=== PATIENT | female | born 1985 | race Caucasian/White ===

== ENCOUNTER 2023-06-28 09:19 | Outpatient (AMB) | payer MEDICARE, MEDICAID, SELFPAY ==
[2023-06-28 09:31] VITALS: BP 126/80; BMI 27.6
--- NOTE | 2023-06-28 09:31 | A.OFFVIS_ITS ---
Intake Vital Signs 06/28/23 09:31 Height 5 ft 7 in Weight 176 lb BMI 27.6 BP 126/80 Intake Visit Reasons: CARE AID annual exam Intake Note: Friend-Ольга The patient agreed to use of a durable medical equipment technician during this encounter. Scribed for RUDY Thomas by Yany Perkins, durable medical equipment technician, on 06/28/2023 at 9:52 am EST. Nuclear Spectroscopist: Nuclear Spectroscopist Present (Alicia) Accompanied by: Friend Allergies No Known Allergies Allergy (Verified 06/28/23 09:31) Is last menstrual period known: Yes Last menstrual period: 06/08/23 HPI HPI Comments History of Present Illness Details She is a premenopausal woman presenting for annual exam with software support representative from her program-Ольга. Doing well with no rn licensed practical concerns: painful menses. Currently never sexually active. Reports heavy and painful menses with cramps 2/5 days. States Tylenol has helped her in the past. She admits to eating healthy and tries to stay active with exercise. Denies vaginal itching and irritation. Denies family hx of colon and ovarian cancer. Last pap smear 06/25/20. [facility] Medical History (Updated 06/28/23 @ 10:07 by Yany Perkins) Dysmenorrhea Menorrhagia with regular cycle Learning disability Autism spectrum Surgical History History of fusion of spine for scoliosis (2013) Family History Father Alcoholic Mother Breast CA Paternal Uncle Lung cancer Social History (Updated 06/28/23 @ 09:54 by Carlee Travis CNM) Household Members Other:: lives w/mom, aunt and uncle Housing: House e-Cigarette/Vaping Use: Never Used service: No Current occupational status: employed Current occupation: [employer] Cognitive needs: No Hearing needs: No Vision needs: No Female Reproductive History Menstrual Duration of menses: 3-5 days Date of last menstrual period: 06/08/23 control method: none Total pregnancies: 0 Date of last pap smear: 06/25/20 (neg) Physical Exam Vital Signs: Last Vital Signs BP 126/80 06/28/23 09:31 BMI result Body Mass Index 27.6 Const General: cooperative, healthy appearing, no acute distress, well developed and alert Orientation/consciousness: patient oriented x3 HEENT Head: Yes normal to inspection Eyes General: appearance normal, both eyes and all related structures Neck Neck: Yes normal visual inspection Thyroid: Thyroid normal Chest Chest palpation & inspection: normal inspection of the chest Breast/axilla inspection: normal inspection of the breasts (no puckering, dimpling, peau de orange, retraction, discharge, masses) Breast/axilla palpation: normal palpation of the breasts Resp Effort & Inspection: normal respiratory effort GI Inspection: Yes normal to inspection Palpation (GI): Soft to palpation (to palpation) Rectal Exam - Female: deferred General: Yes bladder normal to inspection External Female Exam: normal external appearance and normal appearance of the urethra Speculum Exam - Vagina: normal appearance of the vagina, normal palpation and normal vaginal discharge Speculum Exam - Cervix: normal appearance of the cervix, normal palpation and Other cervical findings present (bled slightly with exam) Bimanual exam- vagina & uterus: normal palpation and normal palpation Bimanual Exam- Adnexa, other: normal adnexae and no masses Skin General skin exam: no rashes or lesions noted Neuro General: patient oriented x3 Cognition (Neuro): normal cognition Extrem General: Yes normal to inspection Psych Attitude: cooperative Thought process: Normal thought process present Assessment & Plan Assessment & Plan (1) Encounter for routine gynecological examination: Code(s): Z01.419 - Encounter for gynecological examination (general) (routine) without abnormal findings Plan: Discussed: Current recommendations for pap smears per ASCCP guidelines. Breast awareness and periodic self breast exams. Encouraged BRCA testing. Maintaining a healthy lifestyle including a well balanced diet and routine exercise. Encouraged to use condoms for STD and prevention if become sexual active. All of her questions and concerns were addressed to the best of my ability. RTO in one year for AG. (2) Dysmenorrhea: Code(s): N94.6 - Dysmenorrhea, unspecified Plan: Rx sent to pharmacy. Advised to use 3 Ibuprofen 200 mg (600 milligrams) with food for pain management. Give this a trial for 3 months and if Rx is not working contact office for BC consult. Medications: New ibuprofen take medication 1-3 days of your menses for cramping with food 600 mg PO Q6H PRN 60 tabs 0RF pain Coding Level of Care Code New Pt Prev Care 18-39yr([id number] Diagnoses Encounter for routine gynecological examination Z01.419 Dysmenorrhea N94.6
== END 2023-06-28 10:11 | disposition home or self-care (01) ==
PROVIDERS: Visit Provider Advanced Practice Midwife
DX: N94.6 Dysmenorrhea, unspecified (principal); Z01.419 Encounter for gynecological examination (general) (routine) without abnormal findings
CPT/HCPCS: 99213; G0101

== ENCOUNTER → 2023-06-28 09:19 | Outpatient (BNVA) | payer MEDICARE, MEDICAID, SELFPAY | PROVIDERS: Visit Provider Advanced Practice Midwife | DX: Z01.419 Encounter for gynecological examination (general) (routine) without abnormal findings (principal); N94.6 Dysmenorrhea, unspecified | CPT/HCPCS: 99212; G0101 ==

== ENCOUNTER 2023-11-29 10:57 | Outpatient (AMB) | payer MEDICARE, MEDICAID, SELFPAY ==
[2023-11-29 11:09] VITALS: BP 120/76; PULSE 87; O2SAT 99; BMI 28.0
--- NOTE | 2023-11-29 11:09 | A.OFFPC_ITS ---
Vital Signs 11/29/23 11:09 Height 5 ft 7 in Weight 178 lb 8 oz BMI 28.0 BP 120/76 Blood Pressure Location Rt brachial Position Sitting Pulse 87 Pulse Source Pulse Oximeter Pulse Oximetry (%) 99 Oxygen Delivery Method Room Air Intake Visit Reasons: Annual Physical Allergies No Known Allergies Allergy (Verified 11/29/23 11:09) Medication List - Last Reconciled 11/29/23 by Patricia Nielsen MD No Known Home Meds Tobacco use date assessed: 11/29/23 Dental Screening Dental Screen Date: 11/29/23 Did you have a dental visit in the last 12 months?: No Did you have a dental problem in the last 6 months where you did not have access to dental care?: No Was dental information given to patient?: Patient has dentist HPI Annual Physical HPI Details Patient is a 37-year-old female came in today for physical examination Patient says that her mother had breast cancer when she was 41 Breast exam was benign today I have placed order for mammogram Patient is on autism spectrum with learning disability She is on able to take public transportation due to that reason. she says that she takes that transportation to go to work at [employer] every day She does have assistance for social activities by Ольга Canas, who is here with the patient she also sometimes take her for appointments Patient had a speech therapy when she was young, her speech is clear today she is able to answer questions appropriately Memory intact She has difficulty reading and writing Patient is established with OBGYN She will have fasting labs today Physical exam 1 year [facility] Medical History Dysmenorrhea Menorrhagia with regular cycle Learning disability Autism spectrum Surgical History History of fusion of spine for scoliosis (2013) Family History Father Alcoholic Mother Breast CA Paternal Uncle Lung cancer Social History Household Members Other:: lives w/mom, aunt and uncle Housing: House Patient Tobacco Use Status: Never used Tobacco e-Cigarette/Vaping Use: Never Used service: No Current occupational status: employed Current occupation: [employer] Cognitive needs: No Hearing needs: No Vision needs: No Questionnaire PHQ-9 Over the last 2 weeks, how often have you been bothered by any of the following problems? 1. Little interest or pleasure in doing things: not at all 2. Feeling down, depressed, or hopeless: not at all 3. Trouble falling or staying asleep, or sleeping too much: not at all 4. Feeling tired or having little energy: not at all 5. Poor appetite or overeating: not at all 6. Feeling bad about yourself - or that you are a failure or have let yourself or your family down: not at all 7. Trouble concentrating on things, such as reading the newspaper or watching television: not at all 8. Moving or speaking so slowly that other people could have noticed. Or the opposite - being so fidgety or restless that you have been moving around a lot more than usual: not at all 9. Thoughts that you would be better off or of hurting yourself in some way: not at all Total score: 0 Depression Screening Interpretation: Negative Depression Screening Done: Yes [id number] - PHQ-9 Billing: Yes Source: Developed by Drs. Julius Loyola, Paula Reis, Danny Alvarez and colleagues, with an educational franck from [employer]. Thrive Questionnaire Date Thrive assessed: 11/29/23 I am a: Patient What is your living situation today?: I have a steady place to live Within the past 12 months, did the food you bought not last and you didn't have the money to get more?: Never true Within the past 12 months, did you worry whether your food would run out before you got money to buy more?: Never true Do you have trouble paying for medicines?: No Do you have trouble getting transportation to medical appointments?: No Do you have trouble paying your heating and electricity bill?: No Do you have trouble taking care of your child, family member or friend?: No Do you have trouble with day-to-day activities such as bathing, preparing meals, shopping, managing finances, etc.?: No Are you currently unemployed and looking for a job?: No Are you interested in more education?: No Please select the resources that you would like help with: None Currently or been in a relationship where the following occur: no concerns reported THRIVE Score: 0 AUDIT C Alcohol Use Questionnaire (AUDIT-C) 1. How often do you have a drink containing alcohol?: Never 3. How often do you have six or more drinks on one occasion?: Never Total Score: 0 Score Reviewed/Action Taken: Yes TI-7 AMB Questionnaire TI-7 Date TI - 7 assessed: 11/29/23 Feeling nervous, anxious, or on edge: 0 = Not at all Not being able to stop or control worryin = Not at all Worrying too much about different things: 0 = Not at all Trouble relaxin = Not at all Being so restless that it is hard to sit still: 0 = Not at all Becoming easily annoyed or irritable: 0 = Not at all Feeling afraid as if something awful might happen: 0 = Not at all Total TI-7 score (0-4 normal; 5-9 mild; 10-14 moderate; 15-21 severe): 0 Source: Developed by Drs. Julius Loyola, Paula Reis, Danny Alvarez and colleagues, with an educational franck from [employer]. TI-7 Assessment Billing TI-7 Assessment Tool: TI-7 Assessment 14855 Review of Systems Const Denies chills, Denies fever(s) and Denies headache(s) Eyes Denies blurry vision ENT Denies headache(s), Denies nasal discharge, Denies nasal obstruction, Denies odynophagia and Denies sinus pain Card Denies chest pain at rest and Denies chest pain with activity Resp Denies cough and Denies hemoptysis GI Denies diarrhea, Denies odynophagia, Denies vomiting and Denies hematemesis Reports as per HPI Musc Denies abnormal gait Skin/Breast Reports as per HPI Neuro Denies Neuro-related abnormal movements, Denies Abnormal speech present, Denies abnormal gait, Denies headache(s) and Denies Sensory deficit (Neuro) Psych Denies mood swings and Denies paranoia Endo Reports as per HPI Galdino/Lymph Reports as per HPI Aller/Immun Reports as per HPI Physical exam (Primary Care) Vital Signs: Last Vital Signs Pulse 87 11/29/23 11:09 BP 120/76 11/29/23 11:09 Pulse Ox 99 11/29/23 11:09 Oxygen Delivery Method Room Air 11/29/23 11:09 BMI result Body Mass Index 28.0 Tobacco/Smoking Status: Tobacco use Status Tobacco use date assessed 11/29/23 11/29/23 11:10 Patient Tobacco Use Status Never used Tobacco 11/29/23 11:22 e-Cigarette/Vaping Use Never Used 11/29/23 11:10 PHQ-9: PHQ-9 Score PHQ-9: Total score 0 11/29/23 11:47 Depression Screening Interpretation: Negative Thrive Assessment: Date of Thrive Assessment Date Thrive assessed 11/29/23 11/29/23 11:24 Currently or been in a relationship where the following occur: no concerns reported Const General: cooperative, comfortable and no acute distress Orientation/consciousness: patient oriented x3 HENMT Head: Yes normocephalic and Yes atraumatic Eyes General: appearance normal, both eyes and all related structures Pupils: Equal, round and reactive pupils present EOM: EOMs intact bilaterally Neck Neck: Yes supple and No lymphadenopathy Thyroid: Thyroid normal Lymphatic: no lymphadenopathy noted Chest Breast/axilla palpation: normal palpation of the breasts Resp Effort & Inspection: normal respiratory effort and able to speak in complete sentences Auscultation: clear to auscultation bilaterally Cardio Heart sounds: S1 normal heart sound present and S2 normal heart sound present GI Palpation (GI): Soft to palpation and nontender Auscultation: normal bowel sounds General: Yes no CVA tenderness Back/Spine/Pelvis Back: no CVA tenderness Skin General skin exam: elasticity normal and turgor normal Neuro General: patient oriented x3 and gait normal Cranial nerves: Yes Equal, round and reactive pupils present Speech: No Abnormal speech present Sensory Exam: No Sensory deficit (Neuro) Coordination: Romberg test negative Extrem General: Yes normal exam except as noted and No edema Office Procedures Flu Questionnaire Does the patient have a severe egg allergy?: No Does the patient have severe life threatening allergies?: No Does the patient have a fever or illness today?: No Has the patient ever had Guillain-Meridian Syndrome?: No Has the patient ever had any past reaction to a flu shot?: No Immunizations flu vacc [id number] 6mos up(PF) 60 mcg(15 mcgx4)/0.5 mL IM syringe Performing Provider: Patricia Nielsen MD Performing [facility] [facility] Administered by: Marshall Dorantes CMA on 11/29/23 11:47 Dose Route Admin Location Dispensed Lot Number Expiration Date NDC Underwriting Technician 0.5 mL IM Right Deltoid 0.5 mL [id number] 04/08/24 [id number] [employer] VIS Given Date VIS Provided VIS Publication Date 11/29/23 Single Vaccine 21 Eligibility Eligibility Date Funding Source Not [facility] Eligible 11/29/23 Private Assessment and Plan Assessment & Plan (1) Encounter for general adult medical examination without abnormal findings: Code(s): Z00.00 - Encounter for general adult medical examination without abnormal findings (2) Learning disability: Code(s): F81.9 - Developmental disorder of scholastic skills, unspecified (3) Autism spectrum: Code(s): F84.0 - Autistic disorder (4) Family history of malignant neoplasm of breast in first degree relative diagnosed when younger than 50 years of age: Code(s): Z80.3 - Family history of malignant neoplasm of breast Plan Patient is a 37-year-old female came in today for physical examination Patient says that her mother had breast cancer when she was 41 Breast exam was benign today I have placed order for mammogram Patient is on autism spectrum with learning disability She is on able to take public transportation due to that reason. she says that she takes that transportation to go to work at [employer] every day She does have assistance for social activities by Ольга Canas, who is here with the patient she also sometimes take her for appointments Patient had a speech therapy when she was young, her speech is clear today she is able to answer questions appropriately Memory intact She has difficulty reading and writing Patient is established with OBGYN She will have fasting labs today Physical exam 1 year Orders: Orders Complete Blood Count Auto Diff Today F81.9 - Developmental disorder of scholastic skills, unspecified, F84.0 - Autistic disorder, Z00.00 - Encounter for general adult medical examination without abnormal findings Comprehensive [place]. Panel Fast Today F81.9 - Developmental disorder of scholastic skills, unspecified, F84.0 - Autistic disorder, Z00.00 - Encounter for general adult medical examination without abnormal findings TSH reflex Free T4 Today F81.9 - Developmental disorder of scholastic skills, unspecified, F84.0 - Autistic disorder, Z00.00 - Encounter for general adult medical examination without abnormal findings MM tomosynthesis screening BI Today Z80.3 - Family history of malignant neoplasm of breast Influenza [id number] Immunization Today Z23 - Encounter for immunization Coding Level of Care Code Est Pt Prev Care 18-39y([id number]) Diagnoses Encounter for general adult medical examination without abnormal findings Z00.00 Learning disability F81.9 Autism spectrum F84.0 Family history of malignant neoplasm of breast in first degree relative diagnosed when younger than 50 years of age Z80.3 Additional Codes TI-7 Assessment Billing - TI-7 Assessment Tool: TI-7 Assessment [id number] ([id number])
== END 2023-11-29 11:49 | disposition home or self-care (01) ==
PROVIDERS: Visit Provider Internal Medicine
DX: Z00.00 Encounter for general adult medical examination without abnormal findings (principal); F81.9 Developmental disorder of scholastic skills, unspecified; F84.0 Autistic disorder; Z23 Encounter for immunization; Z80.3 Family history of malignant neoplasm of breast
CPT/HCPCS: 90471; 90686; 99395

== ENCOUNTER 2023-11-29 11:50 | Outpatient (REF) | payer MEDICARE, MEDICAID, SELFPAY ==
[2023-11-29 13:57] LABS: Alanine Aminotransferase 13 U/L (0-31); Albumin Level 4.2 g/dL (3.5-5.0); Alkaline Phosphatase 78 U/L (39-117); Anion Gap 12 (12-20); Aspartate Amino Transferase 16 U/L (5-31); Bilirubin Total 0.4 mg/dL (0.0-1.0); Blood Urea Nitrogen 10 mg/dL (9-16); Calcium 9.2 mg/dL (8.4-10.2); Carbon Dioxide 26 mmol/L (22-29); Chloride 105 mmol/L (96-108); Estimated Glomerular Filt Rate > 60; Glucose Fasting 92 mg/dL (60-99); Sodium 139 mmol/L (135-145); Total Protein 7.5 g/dL (6.5-8.0)
[2023-11-29 14:04] LABS: TSH reflex Free T4 0.62 uIU/mL (0.32-4.0)
== END 2023-11-29 11:51 | disposition home or self-care (01) ==
LOC: HO.HMGCLDS 11:50
PROVIDERS: PCP Internal Medicine; Visit Provider Internal Medicine
DX: Z00.00 Encounter for general adult medical examination without abnormal findings (principal); F81.9 Developmental disorder of scholastic skills, unspecified; F84.0 Autistic disorder
CPT/HCPCS: 36415; 80053; 84443

== ENCOUNTER 2023-12-27 14:42 | Outpatient (REF) | payer MEDICARE, MEDICAID, SELFPAY ==
--- NOTE | ~2023-12-27 | MM_ITS ---
EXAMINATION: MM SCREENING DIGITAL BREAST TOMOSYNTHESIS, BILATERAL CLINICAL INFORMATION: Screening. Asymptomatic. COMPARISON: Mammography: This is a baseline mammogram. TECHNIQUE: Digital breast tomosynthesis is performed in both the craniocaudal and mediolateral oblique views along with computer-aided detection (CAD). Synthesized 2D images are generated from the tomosynthesis. FINDINGS: There are scattered areas of fibroglandular density (ACR BI-RADS breast composition Category b). There are no significant masses, abnormal calcifications, or other abnormalities. MM/MM tomosynthesis screening BI IMPRESSION: No mammographic evidence of malignancy. ASSESSMENT: BI-RADS BI-RADS 1 - Negative RECOMMENDATION: Routine annual mammography screening. 1 year F/U This examination should not preclude the clinical evaluation of a suspicious palpable abnormality. This patient's information was entered into a reminder system with a target due date for their next mammogram.
== END 2023-12-27 14:43 | disposition home or self-care (01) ==
LOC: HO.MAMMO 14:42
PROVIDERS: PCP Internal Medicine; Visit Provider Internal Medicine
DX: Z12.31 Encounter for screening mammogram for malignant neoplasm of breast (principal); Z80.3 Family history of malignant neoplasm of breast
CPT/HCPCS: 77063; 77067

== ENCOUNTER → 2023-12-27 14:45 | Outpatient (BNV) | payer MEDICARE, MEDICAID, SELFPAY | PROVIDERS: PCP Internal Medicine; Visit Provider Radiology Diagnostic Radiology | DX: Z12.31 Encounter for screening mammogram for malignant neoplasm of breast (principal) | CPT/HCPCS: 77063; 77067 ==

== ENCOUNTER 2024-12-07 11:03 | Outpatient (AMB) | payer MEDICARE, MEDICAID, SELFPAY ==
[2024-12-07 11:11] VITALS: BP 130/80; PULSE 90; TEMP 36.6; O2SAT 100; BMI 28.2
--- NOTE | 2024-12-07 11:11 | MHC.PC.OV ---
Vital Signs 12/07/24 11:11 Height 5 ft 7 in Weight 180 lb BMI 28.2 BP 130/80 Blood Pressure Location Lt brachial Position Sitting Pulse 90 Pulse Source Pulse Oximeter Temp 97.9 F Temp Source Oral Pulse Oximetry (%) 100 Intake Visit Reasons: Annual Physical Allergies No Known Allergies Allergy (Verified 12/07/24 11:11) Medication List - Last Reviewed 12/07/24 by Marshall Dorantes CMA No Known Home Meds Tobacco use date assessed: 12/07/24 Dental Screening Dental Screen Date: 12/07/24 Did you have a dental visit in the last 12 months?: Yes Did you have a dental problem in the last 6 months where you did not have access to dental care?: No Was dental information given to patient?: Patient has dentist HPI Annual Physical HPI Details Patient is a 38-year-old female came in today for physical examination with her weekend caregiver Patient is on autism spectrum with learning disability She is on able to take public transportation due to that reason. she says that she takes that transportation to go to work at [employer] every day She does have assistance for social activities She has difficulty reading and writing - No active medical issues or concerns were reported during the visit. - She is not on any medications currently. - Her last visit to the OBGYN was last year, and routine screenings are scheduled. - She denies any recent symptoms or health changes. - Feeling well overall, with a positive self-assessment of health. Health Maintenance - Discussed the importance of regular screening, including upcoming mammogram scheduled for December 28. - Patient is due for a Tetanus, Diphtheria, and Pertussis (Tdap) vaccination, as her last was in 2013. Patient Instructions - Continue maintaining a healthy lifestyle and follow up with routine scheduled screenings. - Ensure to receive the Tdap vaccine since it has been over 11 years since the last immunization. - Return for the next annual examination in one year, unless any health concerns arise sooner. Review of Systems. - General: No fever no chills - Neurological: No headaches no dizziness - Ear nose throat: No sore throat no hearing difficulty no ear pain - Cardiovascular: No syncope, no chest pain, no palpitations - Gastrointestinal: No nausea vomiting or diarrhea - Endocrine: No polyuria polydipsia no heat intolerance - Genitourinary: No dysuria - Skin: No new complaints Physical Exam General: Cooperative, healthy appearing, comfortable, no acute distress Orientation: Patient oriented x3 Limitations: due to learning disability Head: Normal to inspection Ears: Within normal limit visually Nose: Normal external nose present Face and sinus: Normal facial exam Eyes: Appearance normal, extraocular movement intact pupils reactive Neck: Normal visual inspection and supple Respiratory: Normal respiratory effort and able to speak in complete sentences. Clear to auscultation, no stridor Cardiovascular: S1 and S2 GI: Normal to inspection. Soft to palpation and nontender Skin: Turgor normal, no acute findings, no rashes, no moles Neuro: Patient oriented x3, motor sensory intact, balance intact, tandem pass Extremities: Normal to inspection, no swelling of ankles PFSH Medical History Dysmenorrhea Menorrhagia with regular cycle Learning disability Autism spectrum Surgical History History of fusion of spine for scoliosis (2013) Family History Father Alcoholic Mother Breast CA Paternal Uncle Lung cancer Social History Household Members Other:: lives w/mom, aunt and uncle Housing: House Patient Tobacco Use Status: Never used Tobacco e-Cigarette/Vaping Use: Never Used service: No Current occupational status: employed 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 1. Little interest or pleasure in doing things: not at all 2. Feeling down, depressed, or hopeless: not at all 3. Trouble falling or staying asleep, or sleeping too much: not at all 4. Feeling tired or having little energy: not at all 5. Poor appetite or overeating: not at all 6. Feeling bad about yourself - or that you are a failure or have let yourself or your family down: not at all 7. Trouble concentrating on things, such as reading the newspaper or watching television: not at all 8. Moving or speaking so slowly that other people could have noticed. Or the opposite - being so fidgety or restless that you have been moving around a lot more than usual: not at all 9. Thoughts that you would be better off or of hurting yourself in some way: not at all Total score: 0 Depression Screening Interpretation: Negative Depression Screening Done: Yes 11906 - PHQ-9 Billing: Yes Source: Developed by Drs. Julius Loyola, Paula Reis, Danny Alvarez and colleagues, with an educational franck from [employer]. Thrive Questionnaire Date Thrive assessed: 12/07/24 I am a: Patient What is your living situation today?: I have a steady place to live Within the past 12 months, did the food you bought not last and you didn't have the money to get more?: Never true Within the past 12 months, did you worry whether your food would run out before you got money to buy more?: Never true Do you have trouble paying for medicines?: No Do you have trouble getting transportation to medical appointments?: Yes Do you have trouble paying your heating and electricity bill?: No Do you have trouble taking care of your child, family member or friend?: No Do you have trouble with day-to-day activities such as bathing, preparing meals, shopping, managing finances, etc.?: No Are you currently unemployed and looking for a job?: No Are you interested in more education?: No Please select the resources that you would like help with: None Currently or been in a relationship where the following occur: No concerns reported THRIVE Score: 1 AUDIT C Alcohol Use Questionnaire (AUDIT-C) 1. How often do you have a drink containing alcohol?: Never 3. How often do you have six or more drinks on one occasion?: Never Total Score: 0 Score Reviewed/Action Taken: Yes TI-7 AMB Questionnaire TI-7 Date TI - 7 assessed: 12/07/24 Feeling nervous, anxious, or on edge: 0 = Not at all Not being able to stop or control worryin = Not at all Worrying too much about different things: 0 = Not at all Trouble relaxin = Not at all Being so restless that it is hard to sit still: 0 = Not at all Becoming easily annoyed or irritable: 0 = Not at all Feeling afraid as if something awful might happen: 0 = Not at all Total TI-7 score (0-4 normal; 5-9 mild; 10-14 moderate; 15-21 severe): 0 Source: Developed by Drs. Julius Loyola, Paula Reis, Danny Alvarez and colleagues, with an educational franck from [employer] TI-7 Assessment Billing TI-7 Assessment Tool: TI-7 Assessment 69222 Physical exam (Primary Care) Vital Signs: Last Vital Signs Temp 97.9 F 12/07/24 11:11 Pulse 90 12/07/24 11:11 BP 130/80 12/07/24 11:11 Pulse Ox 100 12/07/24 11:11 BMI result Body Mass Index 28.2 Tobacco/Smoking Status: Tobacco use Status Tobacco use date assessed 12/07/24 12/07/24 11:14 Patient Tobacco Use Status Never used Tobacco 12/07/24 11:14 e-Cigarette/Vaping Use Never Used 12/07/24 11:14 PHQ-9: PHQ-9 Score PHQ-9: Total score 0 12/07/24 11:27 Depression Screening Interpretation: Negative Thrive Assessment: Date of Thrive Assessment Date Thrive assessed 12/07/24 12/07/24 11:14 Currently or been in a relationship where the following occur: No concerns reported Immunizations Boostrix Tdap 2.5 Lf unit-8 mcg-5 Lf/0.5 mL intramuscular syringe Performing Provider: Patricia Nielsen MD Performing Location: [facility] Administered by: MARYANN Cruz on 12/07/24 11:27 Dose Route Admin Location Dispensed Lot Number Expiration Date [facility] [employer] 0.5 mL IM Left Deltoid 0.5 mL [id number] 12/26/26 07478-018-90 [employer] VIS Given Date VIS Provided VIS Publication Date 12/07/24 Single Vaccine 21 Eligibility Eligibility Date Funding Source Not [facility] Eligible 12/07/24 Private Coding Level of Care Code Est Pt Prev Care 18-39y(99580) Diagnoses Encounter for general adult medical examination without abnormal findings Z00.00 Additional Codes TI-7 Assessment Billing - TI-7 Assessment Tool: TI-7 Assessment 59534 ([id number]) PHQ-9 - 54372 - PHQ-9 Billing: Yes ([id number]) Assessment & Plan Assessment & Plan (1) Encounter for general adult medical examination without abnormal findings: Code(s): Z00.00 - Encounter for general adult medical examination without abnormal findings Category: Medical Plan Patient is a 38-year-old female came in today for physical examination with her weekend caregiver Patient is on autism spectrum with learning disability She is on able to take public transportation due to that reason. she says that she takes that transportation to go to work at [employer] every day She does have assistance for social activities She has difficulty reading and writing - No active medical issues or concerns were reported during the visit. - She is not on any medications currently. - Her last visit to the OBGYN was last year, and routine screenings are scheduled. - She denies any recent symptoms or health changes. - Feeling well overall, with a positive self-assessment of health. Health Maintenance - Discussed the importance of regular screening, including upcoming mammogram scheduled for December 28. - Patient is due for a Tetanus, Diphtheria, and Pertussis (Tdap) vaccination, as her last was in 2013. Patient Instructions - Continue maintaining a healthy lifestyle and follow up with routine scheduled screenings. - Ensure to receive the Tdap vaccine since it has been over 11 years since the last immunization. - Return for the next annual examination in one year, unless any health concerns arise sooner. Orders: Orders TDaP Immunization Today Z23 - Encounter for immunization
== END 2024-12-07 11:28 | disposition home or self-care (01) ==
PROVIDERS: PCP Internal Medicine; Visit Provider Internal Medicine
DX: Z00.00 Encounter for general adult medical examination without abnormal findings (principal); Z23 Encounter for immunization

== ENCOUNTER → 2024-12-07 11:03 | Outpatient (BNVA) | payer MEDICARE, MEDICAID, SELFPAY | PROVIDERS: PCP Internal Medicine; Visit Provider Internal Medicine | DX: Z00.00 Encounter for general adult medical examination without abnormal findings (principal); Z23 Encounter for immunization | CPT/HCPCS: 90471; 90715; 96127; 99395 ==

== ENCOUNTER 2025-02-04 13:14 | Outpatient (REF) | payer MEDICARE, MEDICAID, SELFPAY | END 2025-02-04 13:15 | disposition home or self-care (01) | LOC: HO.MAMMO 13:14 | PROVIDERS: PCP Internal Medicine; Visit Provider Internal Medicine | DX: Z12.31 Encounter for screening mammogram for malignant neoplasm of breast (principal) | CPT/HCPCS: 77063; 77067 ==

== ENCOUNTER → 2025-02-04 13:45 | Outpatient (BNV) | payer MEDICARE, MEDICAID, SELFPAY | PROVIDERS: PCP Internal Medicine; Visit Provider Internal Medicine | DX: Z12.31 Encounter for screening mammogram for malignant neoplasm of breast (principal) | CPT/HCPCS: 77063; 77067 ==